=== PATIENT | male | born 1965 | race Caucasian/White ===

== ENCOUNTER → 2022-01-28 | Outpatient (CLI) | payer OTHER ==
--- NOTE | 2022-01-28 15:48 | RAD ---
XR FOOT_RIGHT 2 VIEWS Clinical Indication: Reason: PAIN / Comparison: None. Findings: There are moderate marginal osteophytes and moderate narrowing of the first MTP joint. The alignment is normal. No medial soft tissue swelling is noted. Question whether there is old postsurgical change of the medial first metatarsal head. No dorsal soft tissue swelling of the foot. There is no acute f racture. The mineralization is normal. IMPRESSION: Moderate arthropathy first MTP. Electronically signed by: Dameon Scott MD (01/28/2022 3:45 PM) [id number]
== END ==
LOC: RAD 10:34
PROVIDERS: ATTEND Physician Assistant
DX: M25.774 Osteophyte, right foot (principal)
CPT/HCPCS: 73620